=== PATIENT | female | born 1985 | race Caucasian/White ===

== ENCOUNTER 2019-05-08 05:23 | Inpatient (IN) | payer MEDICAID ==
[2019-05-08] VITALS (22 sets, daily range): BP systolic 93–122; BP diastolic 36–73; PULSE 69–96; TEMP 97.5–98.7
[~2019-05-08] VITALS: Ht 162.7 cm; Wt 75.9 kg
--- NOTE | 2019-05-08 05:15 | NUR ---
G5L3 at 39 weeks presents to unit for scheduled repeat section. Pt changed into clean gown, hibiclens done. Pt oriented to room, call light within reach, bed in low and locked position. Pt reports occassional BH contractions, denies vaginal bleeding or LOF. Reports good movement. US and toco explained and applied. 0540 - 18 g IV started in right forearm after 1 attempt. Admission labs obtained off of IV start. Lactated Ringers infusing to gravity. 0600 - Consents reviewed and signed with patient. Questions answered. Spouse supportive at bedside.
[~2019-05-08 05:23] MED LIST: IBU800 M1 PO; PERCOCET 325 MG1 TA2 PO
[2019-05-08 06:13] LABS: HEMOGLOBIN 11.6 g/dl (12.5-16.0); MEAN CELL VOLUME 92 fl (80.0-100.0); MEAN CORPUSCULAR HEMOGLOBIN 31 pg (27.0-31.0); MEAN CORPUSCULAR HGB CONC 33 g/dl (33.0-37.0); MEAN PLATELET VOLUME 12.4 fl (7.4-10.4); PLATELET COUNT 128 K/mm3 (130-400); RED BLOOD COUNT 3.78 M/mm3 (4.10-5.30); REDCELL DISTRIBUTION WIDTH-CV 13.9 % (11.5-14.5)
[2019-05-08 06:15] LABS: HEMATOCRIT 34.8 % (37.0-47.0)
[2019-05-08 06:24] LABS: EOSINOPHIL 2 % (0-4); LYMPHOCYTE 18 % (20.0-51.0); MYELOCYTE 5 % (0-0); NEUTROPHILS 61 % (42.0-75.2); PLATELET ESTIMATE DECREASED (NORMAL)
[2019-05-08] MEDS ORDERED: PRENATAL MVI (06:24)
--- NOTE | 2019-05-08 06:30 | NUR ---
Discussed with patient plan of care, assesment completed. Patient prepped for surgery. Spouse at bedside. Will continue to monitor at this time.
--- NOTE | 2019-05-08 12:18 | NUR ---
Endocrinology Teacher offered congrats and prayed with patient and spouse in room.
[2019-05-08 16:32] LABS: HEMATOCRIT 29.1 % (37.0-47.0); HEMOGLOBIN 9.7 g/dl (12.5-16.0)
[2019-05-09 03:58] VITALS: BP 101/56; PULSE 71; TEMP 97.7
[2019-05-09 06:14] LABS: MEAN CELL VOLUME 93 fl (80.0-100.0); MEAN CORPUSCULAR HEMOGLOBIN 30 pg (27.0-31.0); MEAN CORPUSCULAR HGB CONC 33 g/dl (33.0-37.0); MEAN PLATELET VOLUME 12.2 fl (7.4-10.4); PLATELET COUNT 114 K/mm3 (130-400); REDCELL DISTRIBUTION WIDTH-CV 13.8 % (11.5-14.5)
[2019-05-09 06:16] LABS: HEMATOCRIT 30.8 % (37.0-47.0)
[2019-05-09 06:32] LABS: BILIRUBIN,TOTAL 0.1 mg/dL (0.0-1.0); CALCIUM 8.4 mg/dL (8.4-10.2); CREATININE, serum 0.8 (0.52-1.25); POTASSIUM 4.1 mmol/L (3.4-5.0); TOTAL PROTEIN 5.8 gm/dL (6.4-8.2)
[2019-05-09 08:00] VITALS: BP 102/61; PULSE 80; TEMP 98.3
[2019-05-09 16:00] VITALS: BP 101/61; PULSE 79; TEMP 99.3
[2019-05-09 21:00] VITALS: BP 116/64; PULSE 62; TEMP 98.8
[2019-05-10 08:13] VITALS: BP 112/66; PULSE 76; TEMP 98.1
[2019-05-10] MEDS ORDERED: IBU800 M1 PO (10:43)
[2019-05-10] MEDS ORDERED: PERCOCET 325 MG1 TA2 PO (10:44)
== END 2019-05-10 13:35 | disposition home or self-care (01) | DRG 787 ==
LOC: OB 05:23 → LDR 14:45 → OB 05-10 13:35
PROVIDERS: Obstetrics & Gynecology; ADMIT Student in an Organized Health Care Education/Training Program
PROC: 10D00Z1 Extraction of Products of Conception, Low, Open Approach (ICD-10-PCS; principal; 2019-05-08)
DX: O34.211 Maternal care for low transverse scar from previous cesarean delivery (principal); O99.12 Other diseases of the blood and blood-forming organs and certain disorders involving the immune mechanism complicating childbirth; O26.893 Other specified pregnancy related conditions, third trimester; D69.6 Thrombocytopenia, unspecified; O99.344 Other mental disorders complicating childbirth; Z3A.39 39 weeks gestation of pregnancy; Z37.0 Single live birth; F32.9 Major depressive disorder, single episode, unspecified; F41.9 Anxiety disorder, unspecified; Z67.21 Type B blood, Rh negative; R10.9 Unspecified abdominal pain; O90.89 Other complications of the puerperium, not elsewhere classified
CPT/HCPCS: J0171; J0690; J1885; J2270; J2370; J2405; J2590; J3010; J7120